=== PATIENT | female | born 1980 | race Caucasian/White ===

== ENCOUNTER 2016-07-21 22:49 | Emergency (ER) | payer OTHER ==
[~2016-07-21] VITALS: Ht 165.1 cm; Wt 84.4 kg
[2016-07-22] MEDS ORDERED: REGLAN10 MG PO (00:11)
[2016-07-22] MEDS ORDERED: FIORICET 50-301 EACH PO (00:11)
[2016-07-22 00:27] VITALS: BP 118/72
== END 2016-07-22 00:28 | disposition home or self-care (01) ==
LOC: EME 22:49
DX: G43.909 Migraine, unspecified, not intractable, without status migrainosus (principal)
CPT/HCPCS: 99281; 99284